=== PATIENT | male | born 1990 | race Two or more races ===

== ENCOUNTER 2017-11-11 09:23 | Emergency (ER) ==
[2017-11-11 09:36] VITALS: BP 144/87; TEMP 96; BMI 20.9
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
[2017-11-11] MEDS: TORADOL IM STA (10:41)
--- NOTE | 2017-11-11 10:48 | DI ---
EXAM: Three views of the right shoulder HISTORY: Trauma of the right shoulder. COMPARISON: Same day right clavicle x-ray. FINDINGS: There is a displaced comminuted fracture of the right clavicle. The acromioclavicular join t is unremarkable. Glenohumeral joint is normal. The humerus is normal. The scapula is unremarkabl e. The adjacent ribs are unremarkable. IMPRESSION: 1. Comminuted displaced fracture of the right clavicle. 2. No acute abnormality of the right shoulder.
--- NOTE | 2017-11-11 10:49 | DI ---
EXAM: Two views of the right clavicle HISTORY: Right shoulder and clavicle injury. COMPARISON: The same day right shoulder x-rays FINDINGS: There is a comminuted displaced mid clavicular fracture with the proximal fragment displace d superiorly approximately 1.1 cm with retraction of approximately 2.5 cm. Small adjacent fracture f ragments are noted. The soft tissues are otherwise unremarkable. The adjacent osseous structures ar e normal. IMPRESSION: Comminuted displaced fracture of the mid right clavicle with retraction as described landen costa.
== END 2017-11-11 12:55 | disposition home or self-care (01) ==
LOC: ED 09:23
DX: S42.021A Displaced fracture of shaft of right clavicle, initial encounter for closed fracture (principal); V87.8XXA Person injured in other specified noncollision transport accidents involving motor vehicle (traffic), initial encounter
CPT/HCPCS: 96372; 99283